=== PATIENT | female | born 1980 | race Caucasian/White ===

== ENCOUNTER 2019-05-16 12:38 | Outpatient (REF) | payer OTHER, SELFPAY ==
[2019-05-17 11:46] LABS: ALT 20 U/L (14-59); AST 16 U/L (15-37)
== END 2019-05-16 12:58 ==
LOC: NCHCN 12:38
PROVIDERS: PCP Nurse Practitioner Family; Visit Provider Nurse Practitioner Family
DX: B18.1 Chronic viral hepatitis B without delta-agent (principal)
CPT/HCPCS: 84450; 84460

== ENCOUNTER 2019-05-29 02:07 | Outpatient (CLI) | payer OTHER, SELFPAY ==
--- NOTE | 2019-05-29 | DI.US_ITS ---
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 COMPARISON: No exams were available for comparison FINDINGS: LIVER: Normal size and echogenicity. No focal liver lesions are seen.. GALLBLADDER: No evidence of cholelithiasis. No evidence of wall thickening. No pericholecystic fluid identified. KIDNEYS: Kidneys are symmetric in size. No evidence of renal calculi. No evidence of hydronephrosis. No renal mass or cyst identified. BILIARY SYSTEM: No intrahepatic or extrahepatic biliary ductal dilation. CARDENAS'S SIGN: Negative. PANCREAS: Normal where visualized. SPLEEN: Not enlarged. ABDOMINAL AORTA AND IVC: Visualized portions normal caliber. ASCITES: None seen. The patient noted discomfort in the right upper quadrant. No soft tissue abnormality was visible. IMPRESSION: Normal sonographic appearance of the upper abdomen. DATA REPOSITORY:
== END 2019-05-29 02:27 ==
PROVIDERS: PCP Nurse Practitioner Family; Visit Provider Nurse Practitioner Family
DX: B18.1 Chronic viral hepatitis B without delta-agent (principal)
CPT/HCPCS: 76700

== ENCOUNTER 2019-10-17 09:40 | Outpatient (REF) | payer BC, SELFPAY | END 2019-10-17 10:00 | LOC: NCHCN 09:40 | PROVIDERS: PCP Nurse Practitioner Family; Visit Provider Nurse Practitioner Family | DX: R30.0 Dysuria (principal) | CPT/HCPCS: 87077; 87086; 87186 ==

== ENCOUNTER 2019-11-14 21:41 | Outpatient (REF) | payer BC, SELFPAY | END 2019-11-14 22:01 | LOC: NCHCN 21:41 | PROVIDERS: PCP Nurse Practitioner Family; Visit Provider Family Medicine | DX: R30.0 Dysuria (principal) | CPT/HCPCS: 87086 ==

== ENCOUNTER 2019-12-05 15:40 | Outpatient (REF) | payer BC, SELFPAY | END 2019-12-05 16:00 | LOC: NCHCN 15:40 | PROVIDERS: PCP Nurse Practitioner Family; Visit Provider Nurse Practitioner Family | DX: R30.0 Dysuria (principal) | CPT/HCPCS: 87077; 87086; 87186 ==

== ENCOUNTER 2020-04-01 14:47 | Outpatient (REF) | payer BC, SELFPAY | END 2020-04-01 15:07 | LOC: NCHCN 14:47 | PROVIDERS: PCP Nurse Practitioner Family; Visit Provider Family Medicine | DX: R30.0 Dysuria (principal) | CPT/HCPCS: 87086 ==

== ENCOUNTER 2020-04-11 16:08 | Outpatient (REF) | payer BC, SELFPAY | END 2020-04-11 16:28 | LOC: NCHCN 16:08 | PROVIDERS: PCP Nurse Practitioner Family; Visit Provider Family Medicine | DX: R30.0 Dysuria (principal) | CPT/HCPCS: 87077; 87086; 87186 ==

== ENCOUNTER 2020-07-21 12:31 | Outpatient (REF) | payer BC, SELFPAY ==
[2020-07-21 13:09] LABS: Bilirubin Negative (Negative); Blood Trace-lysed (Negative); Clarity Clear (Clear); Glucose Negative (Negative); Ketones Negative (Negative); Leukocyte Esterase Negative (Negative); Nitrite Negative (Negative); Specific Gravity 1.015 (1.005-1.025); Urobilinogen 0.2 EU/dL (Up TO 0.2)
[2020-07-21 13:25] LABS: Bacteria Moderate HPF (Negative); C & S Indicated? No; Casts Negative LPF (Negative); Crystals Negative HPF (Negative); Epithelial Cells Few HPF (Negative); Mucus Negative (Negative); RBC 0-2 HPF (0-2); WBC 0-2 HPF (0-5)
== END 2020-07-21 12:32 | disposition home or self-care (01) ==
LOC: NCHCN 12:31
PROVIDERS: PCP Nurse Practitioner Family; Visit Provider Family Medicine
DX: R30.0 Dysuria (principal)
CPT/HCPCS: 87077; 81003; 81015; 87086; 87186

== ENCOUNTER 2020-10-20 09:06 | Outpatient (REF) | payer BC, SELFPAY ==
[2020-10-20 14:02] LABS: Calculated LDL 145 mg/dL (<100); Cholesterol 256 mg/dL (<200); HDL Cholesterol 101 mg/dL (40-60); Triglyceride 52 mg/dL (<150)
== END 2020-10-20 09:07 | disposition home or self-care (01) ==
LOC: NCHCN 09:06
PROVIDERS: PCP Nurse Practitioner Family; Visit Provider Family Medicine
DX: Z00.00 Encounter for general adult medical examination without abnormal findings (principal)
CPT/HCPCS: 80061

== ENCOUNTER 2020-11-28 12:00 | Outpatient (REF) | payer BC, SELFPAY ==
--- NOTE | 2020-11-28 09:42 | PAPFT_PTH ---
PATIENT: Nathalie Waters LOC: [facility]#:[id number] AGE/SX: 39/F ROOM: RE11/28/[address]: Linnette Glaser : 1980 BED: DIS: 11/28/2020 SPEC #: [id number] RECD: 12/02/20 12:07 STATUS: JOAO REMarti #: [id number] OSKAR: 11/28/20 09:[address]: Linnette Glaser [facility]PT[facility] Cytology RECD BY: Radha Juares Tissues: 1 - CX/ENDOCX FOR PAP SMEARS Procedures: PAP THIN PREP/[facility] Screening HPV DNA PROBE Comments: [id number]
== END 2020-11-28 12:01 | disposition home or self-care (01) ==
LOC: NCHCN 12:00
PROVIDERS: PCP Nurse Practitioner Family; Visit Provider Nurse Practitioner Family
DX: Z00.00 Encounter for general adult medical examination without abnormal findings (principal); Z12.4 Encounter for screening for malignant neoplasm of cervix; Z01.419 Encounter for gynecological examination (general) (routine) without abnormal findings; Z11.51 Encounter for screening for human papillomavirus (HPV)
CPT/HCPCS: 88142; 87624

== ENCOUNTER 2022-05-24 15:48 | Outpatient (REF) | payer BC, SELFPAY | END 2022-05-24 15:49 | disposition home or self-care (01) | LOC: NCHCN 15:48 | PROVIDERS: PCP Nurse Practitioner Family; Visit Provider Family Medicine | DX: R30.0 Dysuria (principal) | CPT/HCPCS: 87077; 87086; 87186 ==

== ENCOUNTER 2023-11-22 17:26 | Outpatient (REF) | payer BC, SELFPAY | END 2023-11-22 17:27 | disposition home or self-care (01) | LOC: NCHCN 17:26 | PROVIDERS: PCP Nurse Practitioner Family; Visit Provider Nurse Practitioner Family | DX: N89.8 Other specified noninflammatory disorders of vagina (principal) | CPT/HCPCS: 87480; 87510; 87660 ==